=== PATIENT | female | born 1985 | race Caucasian/White ===

== ENCOUNTER 2018-01-22 21:54 | Emergency (ER) | payer MEDICAID ==
[~2018-01-22] VITALS: Ht 162.6 cm; Wt 53.2 kg
[2018-01-22] MEDS ORDERED: SEROQUEL25 MG (22:12)
[2018-01-22] MEDS ORDERED: PHENERGAN25 M1 (22:12)
[2018-01-22] MEDS ORDERED: ELAVIL75 MG (22:12)
[2018-01-22] MEDS ORDERED: XANAX0.25 MG (22:13)
[2018-01-22] MEDS ORDERED: VALIUM 2 MG TAB2 MG (22:13)
[2018-01-22] MEDS ORDERED: DILAUDID2 MG (22:13)
[2018-01-22] MEDS ORDERED: OXYCODONE HCL10 MG (22:13)
[2018-01-22 22:14] VITALS: BP 111/73; Ht 162.6 cm; Wt 53.2 kg
== END 2018-01-22 23:20 | disposition home or self-care (01) ==
LOC: D.ER 21:54
DX: R53.1 Weakness (principal); R20.2 Paresthesia of skin

== ENCOUNTER 2018-10-03 10:08 | Emergency (ER) | payer OTHER ==
[~2018-10-03] VITALS: Ht 162.6 cm; Wt 63.6 kg
[~2018-10-03 10:08] MED LIST: DILAUDID2 MG; ELAVIL75 MG; OXYCODONE HCL10 MG; PHENERGAN25 M1; SEROQUEL25 MG; VALIUM 2 MG TAB2 MG; XANAX0.25 MG
[2018-10-03 10:26] VITALS: Ht 162.6 cm; Wt 63.6 kg
[2018-10-03] MEDS ORDERED: BUSPAR 15 MG TA15 MG PO (10:29)
[2018-10-03] MEDS ORDERED: ZITHROMAX250 MG PO (10:29)
[2018-10-03 11:16] LABS: HEMOGLOBIN 13.7 g/dL (12-16); MCH 31.4 pg (26.0-34.0); MCHC 32.6 g/dL (31.0-37.0); MCV 96.1 fL (80.0-100.0); MEAN PLATELET VOLUME 10.5 fL (7.4-10.4); PLATELET COUNT 196 10x3/uL (130-400); RBC 4.37 10x6/uL (4.00-5.40); RDW 12.9 % (11.5-14.5); WBC 4.3 10x3/uL (4.8-10.8)
[2018-10-03 11:33] LABS: ALBUMIN 3.6 g/dL (3.4-5.0); ALKALINE PHOSPHATASE 63 U/L (46-116); ALT (SGPT) 143 U/L (10-68); BILIRUBIN - TOTAL 0.24 mg/dL (0.2-1.3); CALC OSMOLALITY 281 mosm/kg (275-300); CALCIUM 8.8 mg/dL (8.5-10.1); CARBON DIOXIDE 28.2 mmol/L (21.0-32.0); CHLORIDE - SERUM 107 mmol/L (98-107); CREATININE - SERUM 0.6 mg/dL (0.6-1.3); GLUCOSE 103 mg/dL (74-106); POTASSIUM - SERUM 4.3 mmol/L (3.5-5.1); PROTEIN - SERUM 7.1 g/dL (6.4-8.2); SODIUM 142 mmol/L (136-145); UREA NITROGEN 11 mg/dL (7-18); eGFR NON AFRICAN AMERICAN > 90 mL/min (90-120)
[2018-10-03 11:47] LABS: HCG URINE NEGATIVE (NEGATIVE)
[2018-10-03 12:04] LABS: EOSINOPHILS 1 % (0-7); LYMPHOCYTES 43 % (15-50); MONOCYTES 14 % (2-11); NEUTROPHILS 41 % (40-80); PLATELET ESTIMATE NORMAL
[2018-10-03] MEDS ORDERED: XOFLUZA40 MG PO (12:21)
[2018-10-03] MEDS ORDERED: ACETAMINOPHEN500 M1 PO (12:21)
[2018-10-03] MEDS ORDERED: IBUPROFEN800 MG PO (12:21)
[2018-10-03 13:47] VITALS: BP 107/76
== END 2018-10-03 13:46 | disposition home or self-care (01) ==
LOC: D.ER 10:08
PROVIDERS: Family Medicine
DX: J11.1 Influenza due to unidentified influenza virus with other respiratory manifestations (principal); R53.81 Other malaise; R53.83 Other fatigue; M79.18 Myalgia, other site

== ENCOUNTER 2018-10-03 22:47 | Emergency (ER) | payer OTHER ==
[~2018-10-03] VITALS: Ht 162.6 cm; Wt 63.6 kg
[~2018-10-03 22:47] MED LIST changes: +ACETAMINOPHEN500 M1 PO; +BUSPAR 15 MG TA15 MG PO; +IBUPROFEN800 MG PO; +XOFLUZA40 MG PO; +ZITHROMAX250 MG PO
[2018-10-03 22:56] VITALS: Ht 162.6 cm; Wt 63.6 kg
[2018-10-03 23:58] VITALS: BP 122/76
== END 2018-10-03 23:58 | disposition home or self-care (01) ==
LOC: D.ER 22:47
DX: J11.1 Influenza due to unidentified influenza virus with other respiratory manifestations (principal); Z86.19 Personal history of other infectious and parasitic diseases

== ENCOUNTER 2019-06-21 12:06 | Observation (INO) | payer OTHER ==
[~2019-06-21] VITALS: Ht 162.6 cm; Wt 68.0 kg
[2019-06-21] MEDS ORDERED: MOBIC7.5 MG PO (12:22)
[2019-06-21] MEDS ORDERED: ELAVIL75 MG PO (12:22)
[2019-06-21] MEDS ORDERED: SEROQUEL100 MG PO (12:23)
[2019-06-21] MEDS ORDERED: BUPROPION HCL75 MG PO (12:23)
[2019-06-21] MEDS ORDERED: ABILIFY10 MG PO (12:24)
[2019-06-21 12:47] LABS: APPEARANCE CLEAR (CLEAR); BILIRUBIN NEGATIVE (NEGATIVE); COLOR YELLOW (YELLOW); GLUCOSE NEGATIVE (NEGATIVE); HCG URINE NEGATIVE (NEGATIVE); KETONE NEGATIVE (NEGATIVE); NITRITE NEGATIVE (NEGATIVE); PROTEIN NEGATIVE (NEGATIVE); SPECIFIC GRAVITY 1.005 (1.005-1.020); UROBILINOGEN NORMAL (NORMAL)
[2019-06-21 12:48] LABS: EPITHELIAL CELLS 0-5 /hpf (0-5); RED CELLS - URINE 0-5 /hpf (0-5); WHITE CELLS - URINE 0-5 /hpf (NEGATIVE)
[2019-06-21 13:03] LABS: BASOPHILS 0.2 % (0-2); EOSINOPHILS 0.6 % (0-7); HEMATOCRIT 44.3 % (36.0-48.0); HEMOGLOBIN 14.3 g/dL (12-16); IMMATURE GRANULOCYTES 0.2 % (0-5); LYMPHOCYTES 31.1 % (15-50); MCH 31.2 pg (26.0-34.0); MCHC 32.3 g/dL (31.0-37.0); MCV 96.5 fL (80.0-100.0); MEAN PLATELET VOLUME 11.1 fL (7.4-10.4); MONOCYTES 8.2 % (2-11); NEUTROPHILS 59.7 % (40-80); PLATELET COUNT 221 10x3/uL (130-400); RBC 4.59 10x6/uL (4.00-5.40); RDW 12.4 % (11.5-14.5); WBC 6.2 10x3/uL (4.8-10.8)
[2019-06-21 13:25] LABS: CALC OSMOLALITY 283 mosm/kg (275-300); CARBON DIOXIDE 27.1 mmol/L (21.0-32.0); CHLORIDE - SERUM 106 mmol/L (98-107); CREATININE - SERUM 0.8 mg/dL (0.6-1.3); GLUCOSE 101 mg/dL (74-106); SODIUM 143 mmol/L (136-145); UREA NITROGEN 9 mg/dL (7-18); eGFR NON AFRICAN AMERICAN 87 mL/min (90-120)
[2019-06-21 13:29] LABS: ALBUMIN 4.2 g/dL (3.4-5.0); ALKALINE PHOSPHATASE 66 U/L (46-116); ALT (SGPT) 37 U/L (10-68); BILIRUBIN - TOTAL 0.69 mg/dL (0.2-1.3); PROTEIN - SERUM 7.2 g/dL (6.4-8.2)
--- NOTE | 2019-06-21 13:49 | NUR ---
PT TO RADIOLOGY AT THIS TIME.
--- NOTE | 2019-06-21 13:58 | NUR ---
PT RETURNED FROM RADIOLOGY AT THIS TIME.
[2019-06-21 13:59] LABS: HCG SERUM NEGATIVE (NEGATIVE)
[2019-06-21 15:11] LABS: UDS - AMPHET NEGATIVE QUAL (NEGATIVE); UDS - BARB NEGATIVE QUAL (NEGATIVE); UDS - BENZO NEGATIVE QUAL (NEGATIVE); UDS - COCAINE NEGATIVE QUAL (NEGATIVE); UDS - OPIATE NEGATIVE QUAL (NEGATIVE); UDS - PCP NEGATIVE QUAL (NEGATIVE); UDS - THC NEGATIVE QUAL (NEGATIVE)
[2019-06-21 16:23] VITALS: BP 118/83
--- NOTE | 2019-06-21 16:28 | NUR ---
RECEIVED PT FROM ER PT IS IN A ,OT OF PAIN STILL ADVISED UNABLE TO GIVE MORE MEDICATION UNTIL 730 PT HAS FAMILY AT BEDSIDE, CL IN REACH CONTINUE WITH PLAN OF CARE
[2019-06-21 17:18] LABS: APTT 32.3 SECONDS (22.8-39.4); INR 1.11 (0.85-1.17); PROTIME 13.8 SECONDS (11.6-15.0)
[2019-06-21 19:08] VITALS: BMI 25.8
--- NOTE | 2019-06-21 19:15 | NUR ---
PATIENT ALERT AND ORIENTED WHEN ENTERING THE ROOM. PATIENT HAS LEFT AC IV THAT IS PATENT AND SALINE LOCKED AT THIS TIME. PATIENT ASKED IF PAIN MEDICINE COULD BE GIVEN EARLY. SPOKE WITH PATIENT ABOUT EVERY FOUR HOUR ORDER. PATIENT VERBALIZES UNDERSTANDING. REQUESTS SHOWER. COVERED IV FOR PATIENT TO TAKE CHG BATH. DENIES FURTHER ISSUES AT THIS TIME. ACTIVE BOWEL SOUNDS. ROOM AIR. UP WITH ASSIST AND STEADY GAIT NOTED. FIANCE IN ROOM FOR ASSISTANCE. CPOC.
[2019-06-21 19:49] VITALS: BP 96/49
--- NOTE | 2019-06-21 19:57 | NUR ---
PATIENT RUPERTO CAME TO NURSES STATION AND STATES PATIENT IS BLEEDING FROM RECTUM. ASSESSED AREA. APPEARS TO BE MENSTRATION AND SMALL HEMMORHOID ON RECTUM. PATIENT ALSO CONCERNED WITH HS MEDICATIONS. PAGED JULIA GORDON FOR DR. DELACRUZ. IMMEDIATE RETURN CALL TO RESTART SEROQUEL AND ELAVIL. INFORMED OF FINDINGS UPON RECTAL EXAM. NO NEW ORDERS GIVEN AT THIS TIME.
[2019-06-22] VITALS (7 sets, daily range): BP systolic 93–118; BP diastolic 49–68
--- NOTE | 2019-06-22 04:25 | NUR ---
I have reviewed this patient and I concur with the Shift Assessment completed by the Licensed Practical Nurse today this shift.
[2019-06-22 06:16] LABS: BASOPHILS 0.2 % (0-2); EOSINOPHILS 0.9 % (0-7); HEMATOCRIT 37.9 % (36.0-48.0); HEMOGLOBIN 11.8 g/dL (12-16); LYMPHOCYTES 38.8 % (15-50); MCH 30.3 pg (26.0-34.0); MCHC 31.1 g/dL (31.0-37.0); MCV 97.4 fL (80.0-100.0); MEAN PLATELET VOLUME 11.9 fL (7.4-10.4); MONOCYTES 10.4 % (2-11); NEUTROPHILS 49.7 % (40-80); PLATELET COUNT 183 10x3/uL (130-400); RBC 3.89 10x6/uL (4.00-5.40); RDW 12.7 % (11.5-14.5)
[2019-06-22 06:21] LABS: WBC 4.2 10x3/uL (4.8-10.8)
[2019-06-22 06:48] LABS: ALBUMIN 3.4 g/dL (3.4-5.0); ALKALINE PHOSPHATASE 57 U/L (46-116); ALT (SGPT) 31 U/L (10-68); BILIRUBIN - TOTAL 0.49 mg/dL (0.2-1.3); CALC OSMOLALITY 278 mosm/kg (275-300); CALCIUM 8.4 mg/dL (8.5-10.1); CARBON DIOXIDE 24.8 mmol/L (21.0-32.0); CHLORIDE - SERUM 105 mmol/L (98-107); CREATININE - SERUM 0.8 mg/dL (0.6-1.3); GLUCOSE 118 mg/dL (74-106); MAGNESIUM - SERUM 2.1 mg/dL (1.8-2.4); SODIUM 140 mmol/L (136-145); UREA NITROGEN 9 mg/dL (7-18); eGFR NON AFRICAN AMERICAN 87 mL/min (90-120)
--- NOTE | 2019-06-22 07:05 | NUR ---
ALERT AND ORIENTED, RESTING IN BED. FAMILY AT BEDSIDE. NO C/O PAIN. NO S/S OF ACUTE DISTRESS NOTED. UP AD WALT. IV TO LEFT AC, SL. SITE PATENT WITHOUT REDNESS OR SWELLING. DENIES ANY NEEDS AT THIS TIME. CALL LIGHT IN REACH. WILL CONTINUE TO MONITOR.
--- NOTE | 2019-06-22 09:22 | NUR ---
PATIENT C/O PAIN 8/10 IN ABDOMEN, GAVE DEMEROL FOR PAIN. NO S/S OF ACUTE DISTRESS NOTED. CALL LIGHT IN REACH. WILL CONTINUE TO MONITOR.
--- NOTE | 2019-06-22 10:28 | NUR ---
I have reviewed this patient and I concur with the Shift Assessment completed by the Licensed Practical Nurse today this shift.
--- NOTE | 2019-06-22 14:24 | MORECARE ---
CASE MANAGEMENT DISCHARGE SUMMARY PATIENT: JUDY JARVIS UNIT: [id number] ADM DATE: 06/21/19 AGE: 34 : 85 SEX: F ROOM/BED: D.2212 AUTHOR: IDRIS LOYA PHYSICIAN: REFERRING PHYSICIAN: SOFIA DELACRUZ MD DATE OF SERVICE: 06/22/19 Discharge Plan Patient Name: JUDY JARVIS [facility] [facility] 1985 Planned Disposition: Anticipated Discharge Date: Discharge Date: Expected LOS: Initial Reviewer: [email or web address] Initial Review Date: 06/21/2019 Generated: 06/22/19 3:23 pm Patient Name: JUDY JARVIS Page [phone] at 1424 All edits/amendments must be made on the electronic document DICTATION DATE: 06/22/19 142 SHIRT PRESSER: DANI 06/22/19 142 RPT#: [id number] DC DATE: STATUS: ADM IN [facility] [address] [place] [address] END OF REPORT
--- NOTE | 2019-06-22 15:26 | NUR ---
OBTAINED STOOL SAMPLE FOR LAB FOR C-DIFF TOXIN. UNABLE TO SEND TO LAB, STOOL IS FORMED.
--- NOTE | 2019-06-22 23:58 | NUR ---
PT RESTING IN BED. EYES CLOSED. NO SIGNS OF DISTRESS. BREATHING EVEN AND UNLABORED. IV SITE LT AC DRESSING CLEAN DRY AND INTACT. NO SIGNS OF INFECTION. LUNG SOUNDS CLEAR. BOWEL SOUNDS ACTIVE. ABD DISTENDED. NO LOWER LEG SWELLING PRESENT. WILL CONTINUE PLAN OF CARE. CALL LIGHT IN REACH. BED LOWERED AND LOCKED.
[2019-06-23 00:58] VITALS: BP 120/70
--- NOTE | 2019-06-23 01:07 | NUR ---
I have reviewed this patient and I concur with the Shift Assessment completed by the Licensed Practical Nurse today this shift.
[2019-06-23 05:55] VITALS: BP 120/71
--- NOTE | 2019-06-23 07:32 | NUR ---
PT RESTING IN BED RESP EVEN AND UNLABORED. PT REPORTS ABDOMINAL PAIN 4/10 AT THIS TIME. DISCUSSED NEXT TIME MEDICATION DUE PER MD ORDERS. PT VOICES UNDERSTANDING. SALINE LOC TO LEFT AC, SITE WITH REDNESS OR EDEMA. DENIES FURTHER NEEDS AT THIS TIME. CL WITHIN REACH. ENCOURAGED TO CALL WITH NEEDS. CONTINUE POC
[2019-06-23 07:40] LABS: BASOPHILS 0.3 % (0-2); EOSINOPHILS 2.3 % (0-7); HEMATOCRIT 35.6 % (36.0-48.0); HEMOGLOBIN 11.2 g/dL (12-16); IMMATURE GRANULOCYTES 0.3 % (0-5); LYMPHOCYTES 43.5 % (15-50); MCH 30.4 pg (26.0-34.0); MCHC 31.5 g/dL (31.0-37.0); MCV 96.7 fL (80.0-100.0); MEAN PLATELET VOLUME 11.7 fL (7.4-10.4); MONOCYTES 10.5 % (2-11); NEUTROPHILS 43.1 % (40-80); PLATELET COUNT 171 10x3/uL (130-400); RBC 3.68 10x6/uL (4.00-5.40); RDW 12.4 % (11.5-14.5); WBC 3.5 10x3/uL (4.8-10.8)
[2019-06-23 07:48] LABS: CALC OSMOLALITY 281 mosm/kg (275-300); CALCIUM 8.2 mg/dL (8.5-10.1); CARBON DIOXIDE 27.6 mmol/L (21.0-32.0); CHLORIDE - SERUM 108 mmol/L (98-107); CREATININE - SERUM 0.8 mg/dL (0.6-1.3); GLUCOSE 113 mg/dL (74-106); MAGNESIUM - SERUM 1.9 mg/dL (1.8-2.4); POTASSIUM - SERUM 3.4 mmol/L (3.5-5.1); SODIUM 142 mmol/L (136-145); UREA NITROGEN 6 mg/dL (7-18); eGFR NON AFRICAN AMERICAN 87 mL/min (90-120)
[2019-06-23 08:27] VITALS: BP 109/92
[2019-06-23 11:58] VITALS: BP 115/72
[2019-06-23 13:50] VITALS: Ht 162.6 cm; Wt 68.0 kg
[2019-06-23 15:47] VITALS: BP 104/72
[2019-06-23 20:00] VITALS: BP 117/78
[2019-06-24] VITALS: BP 138/72
[2019-06-24 04:00] VITALS: BP 111/64
--- NOTE | 2019-06-24 07:45 | NUR ---
PT RESTING IN BED WITH EYES CLOSED. AWAKENS UPON HEARING STAFF. RESP EVEN AND UNLABORED. PT REPORTS PAIN 4/10 AT THIS TIME. SALINE LOC TO LEFT AC, SITE WITHOUT REDNESS OR EDEMA. DENIES FURTHER NEEDS AT THIS TIME. CL WITHIN REACH. ENCOURAGED TO CALL WITH NEEDS. CONTINUE POC
[2019-06-24 08:28] VITALS: BP 120/89
[2019-06-24 08:36] LABS: BASOPHILS 0.3 % (0-2); EOSINOPHILS 2.7 % (0-7); HEMATOCRIT 38.7 % (36.0-48.0); HEMOGLOBIN 12.2 g/dL (12-16); IMMATURE GRANULOCYTES 0.3 % (0-5); LYMPHOCYTES 46.2 % (15-50); MCH 30.5 pg (26.0-34.0); MCHC 31.5 g/dL (31.0-37.0); MCV 96.8 fL (80.0-100.0); MEAN PLATELET VOLUME 11.7 fL (7.4-10.4); MONOCYTES 9.3 % (2-11); NEUTROPHILS 41.2 % (40-80); PLATELET COUNT 184 10x3/uL (130-400); RDW 12.3 % (11.5-14.5); WBC 3.8 10x3/uL (4.8-10.8)
[2019-06-24 08:53] LABS: CALC OSMOLALITY 276 mosm/kg (275-300); CALCIUM 8.6 mg/dL (8.5-10.1); CARBON DIOXIDE 28.7 mmol/L (21.0-32.0); CHLORIDE - SERUM 105 mmol/L (98-107); CREATININE - SERUM 0.7 mg/dL (0.6-1.3); GLUCOSE 107 mg/dL (74-106); MAGNESIUM - SERUM 1.9 mg/dL (1.8-2.4); SODIUM 140 mmol/L (136-145); UREA NITROGEN 7 mg/dL (7-18); eGFR NON AFRICAN AMERICAN > 90 mL/min (90-120)
[2019-06-24] MEDS ORDERED: LEVAQUIN750 MG PO (10:22)
[2019-06-24] MEDS ORDERED: FLAGYL500 MG PO (10:22)
--- NOTE | 2019-06-24 15:35 | MORECARE ---
CASE MANAGEMENT DISCHARGE SUMMARY PATIENT: JUDY JARVIS UNIT: [id number] ADM DATE: 06/21/19 AGE: 34 : 85 SEX: F ROOM/BED: D.2212 AUTHOR: IDRIS LOYA PHYSICIAN: REFERRING PHYSICIAN: SOFIA DELACRUZ MD DATE OF SERVICE: 06/24/19 Discharge Plan Patient Name: JUDY JARVIS [facility] [facility] 1985 Planned Disposition: Anticipated Discharge Date: Discharge Date: 06/24/2019 Expected LOS: Initial Reviewer: [email or web address] Initial Review Date: 06/21/2019 Generated: 06/24/19 4:35 pm Last DP export: 06/22/19 1:24 p Patient Name: JUDY JARVIS Page [phone] at 1535 All edits/amendments must be made on the electronic document DICTATION DATE: 06/24/19 1535 PRACTICE CONSULTANT: DANI 06/24/19 1535 RPT#: [id number] DC DATE:06/24/19 STATUS: DIS IN [facility] [address] [place] [place] [address] END OF REPORT
== END 2019-06-24 13:51 | disposition home or self-care (01) ==
LOC: D.ER 12:06 → D.MS 15:09 → D.ER 15:48 → OBSVTIME 06-24 12:11 → D.MS 06-24 13:51
PROVIDERS: Family Medicine; ADMIT Family Medicine; ATTEND Family Medicine
DX: K52.9 Noninfective gastroenteritis and colitis, unspecified (principal); C94.81 Other specified leukemias, in remission; D62 Acute posthemorrhagic anemia; E03.9 Hypothyroidism, unspecified

== ENCOUNTER 2019-06-29 16:05 | Emergency (ER) | payer OTHER ==
[~2019-06-29] VITALS: Ht 162.6 cm; Wt 68.2 kg
[~2019-06-29 16:05] MED LIST changes: +ABILIFY10 MG PO; +BUPROPION HCL75 MG PO; +ELAVIL75 MG PO; +FLAGYL500 MG PO; +LEVAQUIN750 MG PO; +MOBIC7.5 MG PO; +SEROQUEL100 MG PO
[2019-06-29 16:13] VITALS: BP 137/56; Ht 162.6 cm; Wt 68.2 kg
[2019-06-29 16:49] LABS: BASOPHILS 0.2 % (0-2); EOSINOPHILS 1.2 % (0-7); HEMATOCRIT 39.8 % (36.0-48.0); HEMOGLOBIN 12.9 g/dL (12-16); IMMATURE GRANULOCYTES 0.2 % (0-5); LYMPHOCYTES 42.9 % (15-50); MCHC 32.4 g/dL (31.0-37.0); MCV 95.7 fL (80.0-100.0); MONOCYTES 8.3 % (2-11); NEUTROPHILS 47.2 % (40-80); PLATELET COUNT 192 10x3/uL (130-400); RBC 4.16 10x6/uL (4.00-5.40); RDW 12.9 % (11.5-14.5); WBC 4.1 10x3/uL (4.8-10.8)
[2019-06-29 17:03] LABS: CALC OSMOLALITY 282 mosm/kg (275-300); CALCIUM 8.9 mg/dL (8.5-10.1); CHLORIDE - SERUM 106 mmol/L (98-107); CREATININE - SERUM 0.7 mg/dL (0.6-1.3); GLUCOSE 118 mg/dL (74-106); POTASSIUM - SERUM 4.4 mmol/L (3.5-5.1); SODIUM 142 mmol/L (136-145); UREA NITROGEN 11 mg/dL (7-18); eGFR NON AFRICAN AMERICAN > 90 mL/min (90-120)
[2019-06-29 17:12] LABS: ALBUMIN 3.9 g/dL (3.4-5.0); ALKALINE PHOSPHATASE 57 U/L (46-116); ALT (SGPT) 35 U/L (10-68); AMYLASE - SERUM 40 U/L (25-115); BILIRUBIN - TOTAL 0.28 mg/dL (0.2-1.3); LIPASE 129 U/L (73-393); PROTEIN - SERUM 6.6 g/dL (6.4-8.2); TROPONIN-I 0.023 ng/mL (0.000-0.060)
== END 2019-06-29 19:20 | disposition left against medical advice (07) ==
LOC: D.ER 16:05
PROVIDERS: Family Medicine
DX: R10.9 Unspecified abdominal pain (principal)

== ENCOUNTER 2019-07-06 05:49 | Emergency (ER) | payer OTHER ==
[~2019-07-06] VITALS: Ht 162.6 cm; Wt 68.2 kg
[2019-07-06 05:53] VITALS: Ht 162.6 cm; Wt 68.2 kg
[2019-07-06 06:32] LABS: BASOPHILS 0.4 % (0-2); EOSINOPHILS 1.1 % (0-7); HEMATOCRIT 40.8 % (36.0-48.0); HEMOGLOBIN 13.1 g/dL (12-16); IMMATURE GRANULOCYTES 0.2 % (0-5); LYMPHOCYTES 46.3 % (15-50); MCH 30.3 pg (26.0-34.0); MCHC 32.1 g/dL (31.0-37.0); MCV 94.4 fL (80.0-100.0); MEAN PLATELET VOLUME 10.7 fL (7.4-10.4); MONOCYTES 11.2 % (2-11); NEUTROPHILS 40.8 % (40-80); PLATELET COUNT 225 10x3/uL (130-400); RBC 4.32 10x6/uL (4.00-5.40); RDW 12.7 % (11.5-14.5); WBC 5.5 10x3/uL (4.8-10.8)
[2019-07-06 06:44] LABS: APTT 30.4 SECONDS (22.8-39.4); INR 1.06 (0.85-1.17); PROTIME 13.3 SECONDS (11.6-15.0)
[2019-07-06 06:46] LABS: CALC OSMOLALITY 273 mosm/kg (275-300); CARBON DIOXIDE 27.2 mmol/L (21.0-32.0); CHLORIDE - SERUM 103 mmol/L (98-107); CREATININE - SERUM 0.8 mg/dL (0.6-1.3); GLUCOSE 102 mg/dL (74-106); POTASSIUM - SERUM 3.5 mmol/L (3.5-5.1); SODIUM 138 mmol/L (136-145); UREA NITROGEN 8 mg/dL (7-18); eGFR NON AFRICAN AMERICAN 87 mL/min (90-120)
[2019-07-06 06:48] LABS: APPEARANCE CLEAR (CLEAR); BILIRUBIN NEGATIVE (NEGATIVE); COLOR YELLOW (YELLOW); GLUCOSE NEGATIVE (NEGATIVE); KETONE NEGATIVE (NEGATIVE); NITRITE NEGATIVE (NEGATIVE); PROTEIN NEGATIVE (NEGATIVE); SPECIFIC GRAVITY 1.025 (1.005-1.020)
[2019-07-06 06:50] LABS: HCG URINE NEGATIVE (NEGATIVE)
[2019-07-06 07:00] LABS: ALBUMIN 3.8 g/dL (3.4-5.0); ALKALINE PHOSPHATASE 44 U/L (46-116); ALT (SGPT) 35 U/L (10-68); AMYLASE - SERUM 39 U/L (25-115); BILIRUBIN - TOTAL 0.51 mg/dL (0.2-1.3); CREATINE KINASE 25 UL (21-215); LIPASE 111 U/L (73-393); PROTEIN - SERUM 6.7 g/dL (6.4-8.2); TROPONIN-I < 0.017 ng/mL (0.000-0.060)
[2019-07-06] MEDS ORDERED: CARAFATE1 G/10 ML PO (09:00)
[2019-07-06] MEDS ORDERED: PROTONIX40 MG PO (09:00)
[2019-07-06 09:12] VITALS: BP 118/72
[2019-07-06] MEDS ORDERED: ZOFRAN ODT4 MG/UDTAB PO (09:13)
== END 2019-07-06 09:14 | disposition home or self-care (01) ==
LOC: D.ER 05:49
PROVIDERS: Emergency Medicine
DX: K29.70 Gastritis, unspecified, without bleeding (principal); G62.9 Polyneuropathy, unspecified; R32 Unspecified urinary incontinence; R15.9 Full incontinence of feces

== ENCOUNTER 2019-08-04 21:34 | Emergency (ER) | payer OTHER ==
[~2019-08-04] VITALS: Ht 162.6 cm; Wt 68.2 kg
[~2019-08-04 21:34] MED LIST changes: +CARAFATE1 G/10 ML PO; +PROTONIX40 MG PO; +ZOFRAN ODT4 MG/UDTAB PO
[2019-08-04 21:41] VITALS: Ht 162.6 cm; Wt 68.2 kg
[2019-08-04] MEDS ORDERED: CYCLOBENZAPRINE5 MG PO (22:14)
[2019-08-04 22:58] VITALS: BP 118/81
== END 2019-08-04 22:58 | disposition home or self-care (01) ==
LOC: D.ER 21:34
DX: S86.911A Strain of unspecified muscle(s) and tendon(s) at lower leg level, right leg, initial encounter (principal); W11.XXXA Fall on and from ladder, initial encounter; Y93.9 Activity, unspecified; Y92.9 Unspecified place or not applicable

== ENCOUNTER 2019-08-25 16:05 | Emergency (ER) | payer OTHER ==
[~2019-08-25] VITALS: Ht 162.6 cm; Wt 65.9 kg
[~2019-08-25 16:05] MED LIST changes: +CYCLOBENZAPRINE5 MG PO
[2019-08-25 16:11] VITALS: Ht 162.6 cm; Wt 65.9 kg
[2019-08-25] MEDS ORDERED: MUCINEX DM ER1 EAC1 PO (17:08)
[2019-08-25] MEDS ORDERED: VOLTAREN75 MG PO (17:08)
[2019-08-25] MEDS ORDERED: AMOXICILLIN500 M1 PO (17:08)
[2019-08-25 17:58] VITALS: BP 128/71
== END 2019-08-25 17:59 | disposition home or self-care (01) ==
LOC: D.ER 16:05
DX: K04.7 Periapical abscess without sinus (principal); J06.9 Acute upper respiratory infection, unspecified

== ENCOUNTER 2019-09-18 21:10 | Emergency (ER) | payer OTHER ==
[~2019-09-18] VITALS: Ht 162.6 cm; Wt 63.6 kg
[~2019-09-18 21:10] MED LIST changes: +AMOXICILLIN500 M1 PO; +MUCINEX DM ER1 EAC1 PO; +VOLTAREN75 MG PO
[2019-09-18 21:23] VITALS: Ht 162.6 cm; Wt 63.6 kg
[2019-09-18 21:48] LABS: BASOPHILS 0.3 % (0-2); EOSINOPHILS 0.9 % (0-7); HEMATOCRIT 38.3 % (36.0-48.0); HEMOGLOBIN 12.7 g/dL (12-16); IMMATURE GRANULOCYTES 0.3 % (0-5); LYMPHOCYTES 34.4 % (15-50); MCH 30.9 pg (26.0-34.0); MCHC 33.2 g/dL (31.0-37.0); MCV 93.2 fL (80.0-100.0); MEAN PLATELET VOLUME 10.7 fL (7.4-10.4); MONOCYTES 9.2 % (2-11); NEUTROPHILS 54.9 % (40-80); PLATELET COUNT 246 10x3/uL (130-400); RBC 4.11 10x6/uL (4.00-5.40); RDW 12.7 % (11.5-14.5); WBC 7.6 10x3/uL (4.8-10.8)
[2019-09-18 22:00] LABS: HCG URINE POSITIVE (NEGATIVE)
[2019-09-18 22:01] LABS: APPEARANCE HAZY (CLEAR); BILIRUBIN NEGATIVE (NEGATIVE); COLOR YELLOW (YELLOW); GLUCOSE NEGATIVE (NEGATIVE); KETONE NEGATIVE (NEGATIVE); NITRITE NEGATIVE (NEGATIVE); PROTEIN NEGATIVE (NEGATIVE); SPECIFIC GRAVITY 1.005 (1.005-1.020); UROBILINOGEN NORMAL (NORMAL)
[2019-09-18 22:03] LABS: BACTERIA NONE SEEN /hpf (NEGATIVE); EPITHELIAL CELLS 0-5 /hpf (0-5); RED CELLS - URINE 0-5 /hpf (0-5); WHITE CELLS - URINE NSEEN /hpf (NEGATIVE)
[2019-09-18 22:04] LABS: CALC OSMOLALITY 275 mosm/kg (275-300); CALCIUM 8.5 mg/dL (8.5-10.1); CARBON DIOXIDE 29.8 mmol/L (21.0-32.0); CHLORIDE - SERUM 105 mmol/L (98-107); CREATININE - SERUM 0.7 mg/dL (0.6-1.3); GLUCOSE 83 mg/dL (74-106); POTASSIUM - SERUM 3.6 mmol/L (3.5-5.1); SODIUM 140 mmol/L (136-145); UREA NITROGEN 8 mg/dL (7-18); eGFR NON AFRICAN AMERICAN > 90 mL/min (90-120)
[2019-09-18 22:13] LABS: ALBUMIN 3.6 g/dL (3.4-5.0); ALKALINE PHOSPHATASE 48 U/L (30-120); ALT (SGPT) 33 U/L (10-68); AMYLASE - SERUM 42 U/L (25-115); BILIRUBIN - TOTAL 0.27 mg/dL (0.2-1.3); LIPASE 144 U/L (73-393); PROTEIN - SERUM 6.8 g/dL (6.4-8.2)
[2019-09-18 22:14] LABS: TROPONIN-I < 0.017 ng/mL (0.000-0.060)
[2019-09-18 22:20] LABS: HCG SERUM POSITIVE (NEGATIVE)
[2019-09-19 02:36] VITALS: BP 142/91
== END 2019-09-19 02:36 | disposition home or self-care (01) ==
LOC: D.ER 21:10
PROVIDERS: Emergency Medicine
DX: O09.10 Supervision of pregnancy with history of ectopic pregnancy, unspecified trimester (principal); Z3A.00 Weeks of gestation of pregnancy not specified; Z85.6 Personal history of leukemia; R10.30 Lower abdominal pain, unspecified

== ENCOUNTER 2019-10-19 18:04 | Emergency (ER) | payer OTHER ==
[2019-09-18 21:23] VITALS: BMI 24.0
[2019-10-20] MEDS ORDERED: MUCINEX DM ER1 EAC1 PO (21:33)
[2019-10-20] MEDS ORDERED: ZPAK PO (21:33)
[2019-10-20] MEDS ORDERED: STERAPRED DS 1010 MG PO (21:33)
== END 2019-10-19 19:24 | disposition left against medical advice (07) ==
LOC: D.ER 18:04
DX: R50.9 Fever, unspecified (principal); R52 Pain, unspecified; R05 Cough

== ENCOUNTER 2019-10-20 17:37 | Emergency (ER) | payer OTHER ==
[~2019-10-20] VITALS: Ht 162.6 cm; Wt 63.6 kg
[2019-10-20 18:26] VITALS: Ht 162.6 cm; Wt 63.6 kg
[2019-10-20] MEDS ORDERED: STERAPRED DS 1010 MG PO (21:33)
[2019-10-20] MEDS ORDERED: ZPAK PO (21:33)
[2019-10-20] MEDS ORDERED: MUCINEX DM ER1 EAC1 PO (21:33)
[2019-10-20 21:46] VITALS: BP 109/79
== END 2019-10-20 21:46 | disposition home or self-care (01) ==
LOC: D.ER 17:37
DX: J06.9 Acute upper respiratory infection, unspecified (principal); J40 Bronchitis, not specified as acute or chronic; C95.91 Leukemia, unspecified, in remission

== ENCOUNTER 2019-10-30 02:15 | Emergency (ER) | payer OTHER ==
[~2019-10-30] VITALS: Ht 162.6 cm; Wt 59.1 kg
[~2019-10-30 02:15] MED LIST changes: +STERAPRED DS 1010 MG PO; +ZPAK PO
[2019-10-30 02:19] VITALS: Ht 162.6 cm; Wt 59.1 kg
[2019-10-30 02:43] LABS: BASOPHILS 0.5 % (0-2); EOSINOPHILS 1.2 % (0-7); HEMATOCRIT 40.8 % (36.0-48.0); HEMOGLOBIN 13.5 g/dL (12-16); IMMATURE GRANULOCYTES 0.2 % (0-5); LYMPHOCYTES 36.8 % (15-50); MCH 31.1 pg (26.0-34.0); MCHC 33.1 g/dL (31.0-37.0); MEAN PLATELET VOLUME 10.3 fL (7.4-10.4); MONOCYTES 9.3 % (2-11); PLATELET COUNT 290 10x3/uL (130-400); RBC 4.34 10x6/uL (4.00-5.40); RDW 12.5 % (11.5-14.5); WBC 8.2 10x3/uL (4.8-10.8)
[2019-10-30 02:50] LABS: CALC OSMOLALITY 279 mosm/kg (275-300); CALCIUM 9.1 mg/dL (8.5-10.1); CARBON DIOXIDE 30.7 mmol/L (21.0-32.0); CHLORIDE - SERUM 103 mmol/L (98-107); CREATININE - SERUM 0.8 mg/dL (0.6-1.3); GLUCOSE 96 mg/dL (74-106); POTASSIUM - SERUM 4.1 mmol/L (3.5-5.1); SODIUM 141 mmol/L (136-145); UREA NITROGEN 10 mg/dL (7-18); eGFR NON AFRICAN AMERICAN 87 mL/min (90-120)
[2019-10-30 02:52] LABS: BILIRUBIN NEGATIVE (NEGATIVE); GLUCOSE NEGATIVE (NEGATIVE); KETONE NEGATIVE (NEGATIVE); NITRITE NEGATIVE (NEGATIVE); UROBILINOGEN NORMAL (NORMAL)
[2019-10-30 02:53] LABS: HCG URINE NEGATIVE (NEGATIVE)
[2019-10-30 02:56] LABS: ALKALINE PHOSPHATASE 60 U/L (30-120); ALT (SGPT) 30 U/L (10-68); BILIRUBIN - TOTAL 0.22 mg/dL (0.2-1.3); PROTEIN - SERUM 7.2 g/dL (6.4-8.2)
[2019-10-30] MEDS ORDERED: FLAGYL500 MG PO (05:40)
[2019-10-30] MEDS ORDERED: ULTRAM50 MG PO (05:40)
[2019-10-30] MEDS ORDERED: DOXYCYCLINE HY100 M2 PO (05:40)
[2019-10-30 05:45] VITALS: BP 103/63
== END 2019-10-30 05:56 | disposition home or self-care (01) ==
LOC: D.ER 02:15
PROVIDERS: Emergency Medicine
DX: R10.32 Left lower quadrant pain (principal); R10.2 Pelvic and perineal pain

== ENCOUNTER 2019-12-29 20:45 | Emergency (ER) | payer OTHER ==
[~2019-12-29] VITALS: Ht 162.6 cm; Wt 59.0 kg
[~2019-12-29 20:45] MED LIST changes: +DOXYCYCLINE HY100 M2 PO; +ULTRAM50 MG PO
[2019-12-29 20:52] VITALS: Ht 162.6 cm; Wt 59.0 kg
[2019-12-29 21:21] LABS: BILIRUBIN NEGATIVE (NEGATIVE); GLUCOSE NEGATIVE (NEGATIVE); KETONE NEGATIVE (NEGATIVE); NITRITE NEGATIVE (NEGATIVE); UROBILINOGEN NORMAL (NORMAL)
[2019-12-29 21:21] LABS: HEMATOCRIT 41.4 % (36.0-48.0); HEMOGLOBIN 13.8 g/dL (12-16); LYMPHOCYTES 37.2 % (15-50); MCHC 33.3 g/dL (31.0-37.0); MEAN PLATELET VOLUME 10.4 fL (7.4-10.4); NEUTROPHILS 53.9 % (40-80); RBC 4.45 10x6/uL (4.00-5.40); WBC 6.6 10x3/uL (4.8-10.8)
[2019-12-29 21:27] LABS: PLATELET COUNT 192 10x3/uL (130-400)
[2019-12-29 21:33] LABS: CALC OSMOLALITY 276 mosm/kg (275-300); CALCIUM 9.1 mg/dL (8.5-10.1); CARBON DIOXIDE 29.1 mmol/L (21.0-32.0); CHLORIDE - SERUM 104 mmol/L (98-107); CREATININE - SERUM 0.7 mg/dL (0.6-1.3); GLUCOSE 98 mg/dL (74-106); POTASSIUM - SERUM 3.8 mmol/L (3.5-5.1); SODIUM 138 mmol/L (136-145); UREA NITROGEN 14 mg/dL (7-18); eGFR NON AFRICAN AMERICAN > 90 mL/min (90-120)
[2019-12-29 21:37] LABS: HCG SERUM NEGATIVE (NEGATIVE)
[2019-12-29 21:39] LABS: ALBUMIN 3.8 g/dL (3.4-5.0); ALKALINE PHOSPHATASE 55 U/L (30-120); ALT (SGPT) 37 U/L (10-68); BILIRUBIN - TOTAL 0.36 mg/dL (0.2-1.3); PROTEIN - SERUM 6.8 g/dL (6.4-8.2)
[2019-12-29] MEDS ORDERED: MIRALAX17 GM PO (23:14)
[2019-12-29 23:20] VITALS: BP 126/89
== END 2019-12-29 23:20 | disposition home or self-care (01) ==
LOC: D.ER 20:45
PROVIDERS: Emergency Medicine
DX: K59.00 Constipation, unspecified (principal); R10.32 Left lower quadrant pain; R30.0 Dysuria; R35.0 Frequency of micturition; R39.15 Urgency of urination

== ENCOUNTER 2020-01-03 23:52 | Emergency (ER) | payer OTHER ==
[~2020-01-03] VITALS: Ht 162.6 cm; Wt 63.6 kg
[~2020-01-03 23:52] MED LIST changes: +MIRALAX17 GM PO
[2020-01-04 00:04] VITALS: Ht 162.6 cm; Wt 63.6 kg
[2020-01-04] MEDS ORDERED: TRAMADOL HCL E100 M1 PO (02:06)
[2020-01-04 02:15] VITALS: BP 112/63
== END 2020-01-04 02:15 | disposition home or self-care (01) ==
LOC: D.ER 23:52
DX: S93.401A Sprain of unspecified ligament of right ankle, initial encounter (principal); W10.9XXA Fall (on) (from) unspecified stairs and steps, initial encounter; Y93.9 Activity, unspecified; Y92.9 Unspecified place or not applicable

== ENCOUNTER 2020-03-13 14:30 | Emergency (ER) | payer OTHER ==
[~2020-03-13] VITALS: Ht 162.6 cm; Wt 63.6 kg
[~2020-03-13 14:30] MED LIST changes: +TRAMADOL HCL E100 M1 PO
[2020-03-13 14:54] VITALS: Ht 162.6 cm; Wt 63.6 kg
[2020-03-13 15:53] LABS: BASOPHILS 0.6 % (0-2); EOSINOPHILS 0.6 % (0-7); HEMOGLOBIN 12.2 g/dL (12-16); IMMATURE GRANULOCYTES 0.2 % (0-5); LYMPHOCYTES 27.6 % (15-50); MCH 30.9 pg (26.0-34.0); MCHC 32.1 g/dL (31.0-37.0); MCV 96.2 fL (80.0-100.0); MEAN PLATELET VOLUME 10.4 fL (7.4-10.4); MONOCYTES 7.4 % (2-11); NEUTROPHILS 63.6 % (40-80); PLATELET COUNT 218 10x3/uL (130-400); RBC 3.95 10x6/uL (4.00-5.40); RDW 12.2 % (11.5-14.5); WBC 5.4 10x3/uL (4.8-10.8)
[2020-03-13 16:01] LABS: CALC OSMOLALITY 271 mosm/kg (275-300); CALCIUM 9.3 mg/dL (8.5-10.1); CARBON DIOXIDE 29.3 mmol/L (21.0-32.0); CHLORIDE - SERUM 105 mmol/L (98-107); CREATININE - SERUM 0.8 mg/dL (0.6-1.3); GLUCOSE 103 mg/dL (74-106); SODIUM 136 mmol/L (136-145); UREA NITROGEN 13 mg/dL (7-18); eGFR NON AFRICAN AMERICAN 87 mL/min (90-120)
[2020-03-13 16:07] LABS: ALBUMIN 3.6 g/dL (3.4-5.0); ALKALINE PHOSPHATASE 42 U/L (30-120); ALT (SGPT) 39 U/L (10-68); BILIRUBIN - TOTAL 0.31 mg/dL (0.2-1.3); PROTEIN - SERUM 6.5 g/dL (6.4-8.2)
[2020-03-13 16:17] LABS: BILIRUBIN NEGATIVE (NEGATIVE); GLUCOSE NEGATIVE (NEGATIVE); KETONE NEGATIVE (NEGATIVE); NITRITE NEGATIVE (NEGATIVE); SPECIFIC GRAVITY 1.025 (1.005-1.020); UROBILINOGEN NORMAL (NORMAL)
[2020-03-13 16:20] LABS: RED CELLS - URINE 0-5 /hpf (0-5); WHITE CELLS - URINE 0-5 /hpf (NEGATIVE)
[2020-03-13 16:21] LABS: BACTERIA FEW /hpf (NEGATIVE)
[2020-03-13 16:25] LABS: HCG SERUM NEGATIVE (NEGATIVE)
[2020-03-13] MEDS ORDERED: CLEOCIN HCL300 MG PO (16:36)
[2020-03-13] MEDS ORDERED: AUGMENTIN 875-11 TAB PO (16:44)
[2020-03-13 17:01] VITALS: BP 119/87
== END 2020-03-13 17:01 | disposition home or self-care (01) ==
LOC: D.ER 14:30
PROVIDERS: Emergency Medicine
DX: K59.00 Constipation, unspecified (principal); K02.9 Dental caries, unspecified; R07.9 Chest pain, unspecified; R10.9 Unspecified abdominal pain

== ENCOUNTER 2020-04-10 22:11 | Emergency (ER) | payer OTHER ==
[~2020-04-10] VITALS: Ht 162.6 cm; Wt 63.6 kg
[~2020-04-10 22:11] MED LIST changes: +AUGMENTIN 875-11 TAB PO; +CLEOCIN HCL300 MG PO
[2020-04-10 22:18] VITALS: Ht 162.6 cm; Wt 63.6 kg
[2020-04-10] MEDS ORDERED: BIRTH CONTROL (22:21)
[2020-04-10] MEDS ORDERED: TORADOL10 MG PO (22:21)
[2020-04-10] MEDS ORDERED: ZPAK PO (23:38)
[2020-04-10 23:43] VITALS: BP 129/79
== END 2020-04-10 23:43 | disposition home or self-care (01) ==
LOC: D.ER 22:11
DX: B34.9 Viral infection, unspecified (principal); Z20.828 Contact with and (suspected) exposure to other viral communicable diseases; R05 Cough; J02.9 Acute pharyngitis, unspecified

== ENCOUNTER 2020-04-29 16:04 | Emergency (ER) | payer OTHER ==
[~2020-04-29] VITALS: Ht 162.6 cm; Wt 63.6 kg
[~2020-04-29 16:04] MED LIST changes: +BIRTH CONTROL; +TORADOL10 MG PO
[2020-04-29 16:19] VITALS: BP 110/57; Ht 162.6 cm; Wt 63.6 kg
[2020-04-29 17:52] LABS: BASOPHILS 0.6 % (0-2); EOSINOPHILS 1.7 % (0-7); HEMATOCRIT 40.9 % (36.0-48.0); HEMOGLOBIN 13.4 g/dL (12-16); IMMATURE GRANULOCYTES 0.2 % (0-5); LYMPHOCYTES 27.4 % (15-50); MCH 31.2 pg (26.0-34.0); MCHC 32.8 g/dL (31.0-37.0); MCV 95.1 fL (80.0-100.0); MONOCYTES 6.6 % (2-11); NEUTROPHILS 63.5 % (40-80); PLATELET COUNT 245 10x3/uL (130-400); WBC 5.3 10x3/uL (4.8-10.8)
[2020-04-29 18:00] LABS: NITRITE NEGATIVE (NEGATIVE)
[2020-04-29 18:01] LABS: BILIRUBIN NEGATIVE (NEGATIVE); KETONE NEGATIVE (NEGATIVE); UROBILINOGEN NORMAL mg/dL (< 2)
[2020-04-29 18:05] LABS: BACTERIA FEW /HPF (NONE SEEN); EPITHELIAL CELLS 0-5 /hpf (0-5); WHITE CELLS - URINE 0-5 /HPF (0-4)
[2020-04-29 18:16] LABS: HCG SERUM NEGATIVE (NEGATIVE)
[2020-04-29 18:27] LABS: CALC OSMOLALITY 273 mosm/kg (275-300); CALCIUM 9.4 mg/dL (8.5-10.1); CARBON DIOXIDE 26.8 mmol/L (21.0-32.0); CHLORIDE - SERUM 103 mmol/L (98-107); CREATININE - SERUM 0.8 mg/dL (0.6-1.3); GLUCOSE 104 mg/dL (74-106); POTASSIUM - SERUM 4.4 mmol/L (3.5-5.1); SODIUM 138 mmol/L (136-145); UREA NITROGEN 8 mg/dL (7-18); eGFR NON AFRICAN AMERICAN 87 mL/min (90-120)
[2020-04-29 18:33] LABS: ALBUMIN 4.1 g/dL (3.4-5.0); ALKALINE PHOSPHATASE 53 U/L (30-120); ALT (SGPT) 38 U/L (10-68); BILIRUBIN - TOTAL 0.49 mg/dL (0.2-1.3)
[2020-04-29 18:51] LABS: APTT 33.4 SECONDS (22.8-39.4); INR 0.98 (0.85-1.17); PROTIME 12.9 SECONDS (11.6-15.0)
== END 2020-04-29 18:44 | disposition left against medical advice (07) ==
LOC: D.ER 16:04
PROVIDERS: Family Medicine
DX: R10.2 Pelvic and perineal pain (principal)

== ENCOUNTER 2020-10-26 00:08 | Emergency (ER) | payer OTHER ==
[~2020-10-26] VITALS: Ht 162.6 cm; Wt 63.6 kg
[~2020-10-26 00:08] MED LIST changes: +AMITRIPTYLINE H50 MG PO; +BENADRYL50 MG PO; +MAALOX ADVANCE355 ML PO; +PENICILLIN V P500 MG PO; +VENTOLIN HFA [SP8 GM INH; +WESTCORT 0.2% C15 GM TOPICAL; +ZOFRAN ODT4 MG/UDTAB
[2020-10-26 00:11] VITALS: BP 128/78; Ht 162.6 cm; Wt 63.6 kg
[2020-10-26] MEDS ORDERED: TYLENOL W/CODEI1 TAB PO (00:49)
[2020-10-26] MEDS ORDERED: PENICILLIN V P500 MG PO (00:49)
== END 2020-10-26 01:00 | disposition home or self-care (01) ==
LOC: D.ER 00:08
DX: S02.5XXA Fracture of tooth (traumatic), initial encounter for closed fracture (principal); K02.9 Dental caries, unspecified